=== PATIENT | female | born 1995 | race Caucasian/White ===

== ENCOUNTER 2021-07-09 09:03 | Inpatient (IN) ==
[2021-07-09] MEDS ORDERED: ONDANSETRON 4 MG/2 ML VIAL IV PRN ×2 (09:22→11:35)
[2021-07-09] MEDS ORDERED: AMPICILLIN INJ 2,000 MG in SODIUM CHLORIDE 0.9% 100 ML IV ONE (09:24)
[2021-07-09] MEDS ORDERED: MEPERIDINE 50 MG/1 ML VIAL IV ONE (09:25)
[2021-07-09] MEDS ORDERED: miSOPROStoL 200 MCG TABLET ONE (09:25)
[2021-07-09] MEDS ORDERED: LIDOCAINE 1% 50 ML VIAL MISC INJ ONE (09:25)
[2021-07-09] MEDS ORDERED: TRANEXAMIC ACID 1,000 MG/10 ML VIAL ONE (09:25)
[2021-07-09] MEDS ORDERED: METHYLERGONOVINE 0.2 MG/1 ML AMP ONE (09:26)
[2021-07-09] MEDS ORDERED: CARBOPROST TROMETHAMINE 250 MCG/ML AMP IM ONE (09:26)
[2021-07-09] MEDS ORDERED: OXYTOCIN/LR 20 UNIT/1,000 ML BAG IV ONE ×2 (09:26→11:35)
[2021-07-09] MEDS ORDERED: SODIUM CHLORIDE 0.9% 0 ML IV ONE (09:26)
[2021-07-09] MEDS ORDERED: LACTATED RINGERS 1,000 ML IV SCH (09:30)
[2021-07-09 10:03] LABS: Cord Venous Blood HCO3 21.2 MMOL/L; Cord Venous Blood PCO2 37.6 MMHG; Cord Venous Blood PO2 24.1
[2021-07-09 11:27] LABS: Basophils % 0.1 % (0.0-0.8); Eosinophils % 0.2 % (0.00-10.9); Hematocrit 31.1 VOL% (35.7-47.0); Hemoglobin 10.2 GM/DL (12.0-16.0); Immature Granulocytes % 0.6 %; Immature Granulocytes Absolute 0.08 #; Lymphocytes # 1.2 10*3/uL (1.4-4.0); Lymphocytes % 9.3 % (21.3-54.2); Mean Corpuscular HGB Conc 32.8 GM/DL (32-36); Mean Corpuscular Volume 91.7 FL (87-102); Mean Platelet Volume 10.3 FL (9.6-12.0); Monocytes % 2.7 % (1.7-12.7); Neutrophils % 87.1 % (38.7-73.9); Platelet Count 223 T/CUMM (130-400); Red Blood Count 3.39 MC/CUMM (3.8-5.5); Red Cell Distribution Width 13.8 % (9.3-17.3); White Blood Count 13.1 T/CUMM (4-12)
[2021-07-09] MEDS ORDERED: BENZOCAINE 20%/MENTHOL 0.5% SPRAY 56 GM CAN TOP PRN (11:35)
[2021-07-09] MEDS ORDERED: BISACODYL 10 MG SUPP RECTAL PRN (11:35)
[2021-07-09] MEDS ORDERED: LANOLIN 50% CREAM 0.3 OZ TUBE TOP PRN (11:35)
[2021-07-09] MEDS ORDERED: RHO(D) IMMUNE GLOBULIN 300 MCG SYRINGE IM ONE (11:35)
[2021-07-09] MEDS ORDERED: HYDROCORTISONE 2.5% RECTAL CREAM 30 GM TUBE TOP PRN (11:35)
[2021-07-09] MEDS ORDERED: DIPH/TET/ACEL PERT BOOSTER VACCINE 0.5 ML VIAL IM ONE (11:35)
[2021-07-09] MEDS ORDERED: WITCH HAZEL PADS 100/JAR TOP PRN (11:35)
[2021-07-09] MEDS ORDERED: MEASLES/MUMPS/RUBELLA VACCINE 0.5 ML VIAL SUBCUT ONE (11:35)
[2021-07-09] MEDS ORDERED: ACETAMINOPHEN 325 MG TABLET PO PRN (11:35)
[2021-07-09] MEDS ORDERED: oxyCODONE/ACETAMINOPHEN 5-325 MG TABLET PO PRN ×2 (11:35)
[2021-07-09 14:17] LABS: Barbiturates Screen,Urine Negative (Negative); Benzodiazepines Screen,Urine Negative (Negative); Cannabinoid Screen,Urine Negative (Negative); Opiate Screen,Urine Negative (Negative); Phencyclidine Screen,Urine Negative (Negative)
[2021-07-09 14:53] LABS: Bilirubin,Urine Negative (Negative); Blood, Urine Large mg/dL (Negative); Glucose,Urine (UA) Negative (Negative); Ketones,Urine 5 mg/dL (Negative); Mucus,Urine Occasional /LPF (Occasional); Nitrite,Urine Negative (Negative); Protein,Urine 30 MG/DL; RBC,Urine 1238 /HPF (0-4); Urine Appearance Slightly Hazy (Clear); Urine Color Yellow (Yellow); Urine Specific Gravity 1.011 (1.001-1.035); Urine Urobilinogen < 2.0 EU/DL (<2.0)
[2021-07-09] MEDS: IBUPROFEN 800 MG TABLET PO PRN (19:29)
[2021-07-09] MEDS: DOCUSATE SODIUM 100 MG CAPSULE PO SCH (21:07)
[2021-07-10 07:15] LABS: Basophils % 0.1 % (0.0-0.8); Eosinophils # 0.1 10*3/uL (0.0-0.87); Eosinophils % 0.6 % (0.00-10.9); Hemoglobin 9.9 GM/DL (12.0-16.0); Immature Granulocytes % 0.4 %; Immature Granulocytes Absolute 0.04 #; Lymphocytes # 2.5 10*3/uL (1.4-4.0); Lymphocytes % 23.9 % (21.3-54.2); Mean Corpuscular Volume 92.9 FL (87-102); Mean Platelet Volume 10.9 FL (9.6-12.0); Monocytes % 3.9 % (1.7-12.7); Neutrophils % 71.1 % (38.7-73.9); Platelet Count 195 T/CUMM (130-400); Red Blood Count 3.23 MC/CUMM (3.8-5.5); Red Cell Distribution Width 13.9 % (9.3-17.3); White Blood Count 10.6 T/CUMM (4-12)
[2021-07-10] MEDS ORDERED: MULTIVITAMIN (PRENATAL) TABLET PO SCH (09:00)
[2021-07-10] MEDS: DOCUSATE SODIUM 100 MG CAPSULE PO SCH ×2 (09:41→20:44)
[2021-07-10] MEDS: IBUPROFEN 800 MG TABLET PO PRN (23:15)
[2021-07-11 03:37] VITALS: BP 136/64
[2021-07-11] MEDS: DOCUSATE SODIUM 100 MG CAPSULE PO SCH (08:40)
[2021-07-11] MEDS: IBUPROFEN 800 MG TABLET PO PRN (08:40)
== END 2021-07-11 08:44 | disposition home or self-care (01) | DRG 807 ==
LOC: N.LDOUT 09:03 → N.LD 09:05
PROVIDERS: ADMIT Obstetrics & Gynecology; ATTEND Obstetrics & Gynecology